=== PATIENT | male | born 1975 | race Caucasian/White ===

== ENCOUNTER 2025-02-16 07:05 | Day surgery (SDC) | payer OTHER ==
[~2025-02-16 07:05] MED LIST: Sodium Chloride 0.9% 10 ML Syringe FLUSH PRN
[2025-02-16] MEDS ORDERED: Glycopyrrolate 0.2 MG/ML 5 ML MDV IV ONE (07:06)
[2025-02-16] MEDS ORDERED: Midazolam 1 MG/ML 2 ML SDV IV ONE (07:06)
[2025-02-16] MEDS ORDERED: Lidocaine 2% 5 ML SDV IV ONE (07:06)
[2025-02-16] MEDS ORDERED: Propofol 200 MG/20 ML SDV IV ONE (07:06)
[2025-02-16] MEDS: Lactated Ringers 1,000 ML IV SCH (08:09)
[2025-02-16] MEDS: Simethicone Drops 40 MG/0.6 ML 30 ML Bottle ONE (08:51)
== END 2025-02-16 10:38 | disposition home or self-care (01) ==
LOC: FB.SDS 07:05
PROVIDERS: ATTEND Surgery
DX: Z12.11 Encounter for screening for malignant neoplasm of colon (principal); D12.8 Benign neoplasm of rectum; K51.40 Inflammatory polyps of colon without complications; K63.89 Other specified diseases of intestine; K63.5 Polyp of colon; E11.9 Type 2 diabetes mellitus without complications; E66.9 Obesity, unspecified; Z87.19 Personal history of other diseases of the digestive system; Z79.4 Long term (current) use of insulin; Z79.82 Long term (current) use of aspirin; Z68.31 Body mass index [BMI] 31.0-31.9, adult; Z86.0101 Personal history of adenomatous and serrated colon polyps; Z79.899 Other long term (current) drug therapy
CPT/HCPCS: 00811; 88305; A9270-GY; J1596; J2003; J2250; J2704; J7120